=== PATIENT | male | born 1975 | race Caucasian/White ===

== ENCOUNTER 2018-09-21 17:38 | Observation (INO) | payer MEDICAID, OTHER ==
[2018-09-21] MEDS ORDERED: Sodium Chloride 0.9% 1,000 ML IV STA (17:59)
[2018-09-21] MEDS ORDERED: Multivitamin (MVI) 10 ML, Thiamine 100 MG, Folic Acid 1 MG in Sodium Chloride 0.9% 1,00... IV ONE (17:59)
[2018-09-21 18:10] LABS: VENOUS BLOOD GAS BASE EXCESS 6.1 mmol/L (0.0-2.0); VENOUS BLOOD GAS PCO2 49 mmHg (40-60); VENOUS BLOOD GAS PO2 33 mm/Hg (30-55); VENOUS BLOOD PH 7.42 (7.32-7.43)
[2018-09-21 18:20] LABS: BASO % 0.8 % (0.0-2.0); HEMOGLOBIN 9.8 g/dL (12.0-18.0); MEAN CELL VOLUME 93.4 fl (80.0-94.0); MEAN CORPUSCULAR HGB CONC 33.1 g/dL (33.0-37.0); MEAN PLATELET VOLUME 7.7 fl (7.2-11.7); MONO # 0.5 K/uL (0.0-0.8); MONO % 10.2 % (0.0-10.0); NEUT # 3.6 K/uL (1.8-7.0); NRBC % 0.2 % (0.0-0.0); RBC 3.15 Mil/uL (4.40-5.90); RED CELL DISTRIBUTION WIDTH 20.7 % (11.5-14.5); WHITE BLOOD COUNT 5.2 K/uL (4.8-10.8)
[2018-09-21 18:39] LABS: PROTHROMBIN TIME 10.8 Seconds (9.8-13.1)
[2018-09-21 18:41] LABS: PARTIAL THROMBOPLASTIN TIME 27.8 Seconds (25.6-37.1)
[2018-09-21 18:45] LABS: ALB/GLOB RATIO 1.3 (1.0-2.1); ALBUMIN 3.9 g/dL (3.5-5.0); ALT/SGPT 113 U/L (21-72); AST/SGOT 79 U/L (17-59); BLOOD UREA NITROGEN 11 mg/dl (9-20); CALCIUM 8.8 mg/dL (8.4-10.2); GFR NON-AFRICAN AMERICAN > 60
[2018-09-21] MEDS ORDERED: Insulin Regular 100 units/ml IVP STA (18:48)
[2018-09-21] MEDS ORDERED: Insulin Regular 100 units/ml SC STA (18:48)
[2018-09-21] MEDS ORDERED: Insulin Regular 100 units/ml ONE (18:54)
[2018-09-21 19:33] LABS: ACETAMINOPHEN < 10.0 ug/ml (10.0-30.0); SALICYLATE < 1.0 mg/dl
[2018-09-21 20:29] LABS: URINE BILIRUBIN NEGATIVE (NEGATIVE); URINE BLOOD NEGATIVE (NEGATIVE); URINE CLARITY CLEAR (Clear); URINE COLOR STRAW (YELLOW); URINE GLUCOSE (UA) >=500 mg/dL (Normal); URINE LEUKOCYTE ESTERASE NEG Leu/uL (Negative); URINE PROTEIN NEGATIVE (NEGATIVE); URINE UROBILINOGEN 0.2-1.0 mg/dL (0.2-1.0)
[2018-09-21 20:37] LABS: BARBITURATES, UR NEGATIVE (NEGATIVE); BENZODIAZEPINES, UR NEGATIVE (NEGATIVE); OPIATES, UR NEGATIVE (NEGATIVE); PHENCYCLIDINE, UR NEGATIVE (NEGATIVE)
--- NOTE | 2018-09-21 21:06 | ED PDOC ---
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 Additional Complaint(s): 43 year old male presents to the ED via EMS. Unable to obtain history secondary to intoxication. According to EMS, they were called to scene for a passed out patient. Friend at scene reported patient has a history of alcoholism and drinks daily and had been drinking with him. While they were doing so, patient suddenly passed out. No seizure activity reports and no further history provided. Past Medical History Reviewed: Nursing Documentation, Vital Signs, Unable To Obtain Vital Signs: Last Vital Signs Temp 97 F L 09/21/18 19:31 Pulse 103 H 09/21/18 20:13 Resp 19 09/21/18 20:13 BP 108/71 09/21/18 20:13 Pulse Ox 98 09/21/18 20:13 - Family History Family History: States: Unknown Family Hx - Home Medications Home Medications: Ambulatory Orders Medication Instructions Recorded Unobtainable 09/21/18 - Allergies Allergies/Adverse Reactions: Allergies Allergy/AdvReac Type Severity Reaction Status Date / Time Unobtainable Allergy Verified 09/21/18 17:47 Review of Systems Review Of Systems: ROS cannot be obtained secondary to pt's inabilty to answer questions. Physical Exam - Reviewed Nursing Documentation Reviewed: Yes Vital Signs Reviewed: Yes - Physical Exam Eye Exam: Positive for: Conjunctival injection ENT: Positive for: Other (dry mucous membranes) Cardiovascular/Chest: Positive for: Tachycardia Neurologic/Psych: Negative for: Oriented, Motor/Sensory Deficits Comments: Obtunded, arousable to voice but nonverbal - Laboratory Results Result Diagrams: 09/21/18 17:59 09/21/18 17:59 - ECG O2 Sat by Pulse Oximetry: 98 (RA) Pulse Ox Interpretation: Normal - Critical Care Total Time (In Min): 30 Medical Decision Making Medical Decision Making: Time: 1753 Initial Impression: Alcohol intoxication Initial Plan: --Type and screen --VBG --CT cervical spine w/o contrast --CT head w/o contrast --EKG --Alcohol serum --CMP --Magnesium --Osmolality --Phosphorous --Troponin --CBC with differentials --PTT --Prothrombin time --Chest x-ray --NS --Insulin --Blood culture --Urine culture --Glucose --UA --Patient also found to be severally hypoglycemic with unknown history of diabetes. Time: 1899 --Patients alcohol levels is only 17. On further examination patient found to have bottle of rubbing alcohol with his belongings. 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 Also advised that isopropyl alcohol can raise blood sugar and cause elevated lactic acid. Discussed with Dr. Greogrio for hospitalization. --Patients glucose levels improving after fluids and insulin. Time: 1926 CT Head w/o contrast: FINDINGS: BRAIN No acute intraparenchymal hemorrhage. No mass lesion. No CT evidence for acute territorial infarct. No midline shift or extra-axial collections. VENTRICLES: No hydrocephalus. ORBITS: The orbits are unremarkable. SINUSES AND MASTOIDS: The paranasal sinuses and mastoid air cells are clear. BONES: No fracture. SOFT TISSUES: Unremarkable. IMPRESSION: No acute intracranial abnormality. Time: 1929 CT cervical spine w/o contrast: FINDINGS: ALIGNMENT Bony alignment is anatomic. DEGENERATIVE CHANGES No significant canal stenosis or neural foraminal narrowing evident. SOFT TISSUES The prevertebral soft tissues are within normal limits. BONES No acute fracture or aggressive appearing osseous lesion. IMPRESSION: No acute cervical spine abnormality. Scribe Attestation: Documented by Mary Manrique, acting as a scribe for Tammy Milian MD Provider Scribe Attestation: All medical record entries made by the Scribe were at my direction and pe rsonally dictated by me. I have reviewed the chart and agree that the record accurately reflects my personal performance of the history, physical exam, medical decision making, and the department course for this patient. I have also personally directed, reviewed, and agree with the discharge instructions and disposition. Disposition - Disposition Forms: [employer] (Lao)
--- NOTE | 2018-09-21 22:44 | CARD ---
APPROVED REPORT Date of service: 09/21/2018 EKG Measurement Heart [id number] <Conclusion> Sinus tachycardia Nonspecific ST changes Borderline ECG
[2018-09-21] MEDS ORDERED: Glucagon Recombinant 1 mg Inj IM PRN (23:12)
[2018-09-21] MEDS ORDERED: Dextrose 50% SYRINGE Inj (50 ml) IV PRN (23:12)
--- NOTE | 2018-09-21 23:16 | CP.PCM.HP ---
<Therese Schreiber - Last Filed: 09/22/18 02:03> History of Present Illness - History of Present Illness History of Present Illness: 43 yo male with hx diabetes mellitus and alcohol abuse, admitted for acute intoxication, suspected isopropyl alcohol ingestion. Pt was brought to ED by EMS, as per ED, EMS, were called to scene for a passed out patient and a friend at the scene reported patient has a history of alcoholism and drinks daily, they were drinking and pt passed out. No seizure activity reported. Initially pt was not able to give history on presentation to ED, when examined later on, pt was able to state that he has med hx diabetes and takes insulin (cannot provide dose or formulation, does not know pharmacy name), and that he does not remember what happened prior to ED. Reported that he felt nauseated but has not vomited. Pt is limited historian, unable to give full history and is not oriented to time or place. At this time, pt states he has no family in the [place] and cannot provide a person to contact. Initial alcohol level in ED 17; rubbing alcohol was found in pt's belonging, and poison control was called. 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 Also advised that isopropyl alcohol can raise blood sugar and cause elevated lactic acid 3.8. He was also found to be hyperglycemic at 543, and with elevated liver enzymes ALT 79/AST 113, lactic acid . Head CT and cervical spine CT showed no acute abnormalities. Med hx: IDDM Surg hx: denies Social hx: admits to drinking vodka daily (quantifies as one drink), denies tobacco use or other drug use Allergies: denies Medications: insulin (dose and formulation unknown) Present on Admission - Present on Admission Any Indicators Present on Admission: Yes History of Uncontrolled Diabetes: Yes Review of Systems - Constitutional Constitutional: absent: Fever, Night Sweats - Cardiovascular Cardiovascular: absent: Chest Pain - Respiratory Respiratory: absent: Cough - Gastrointestinal Gastrointestinal: Nausea - Neurological Neurological: Syncope Past Patient History - Past Medical History & Family History Past Medical History?: Yes - Past Social History Smoking Status: Unknown If Ever Smoked Alcohol: Other (daily, pt states 1x per day) - CARDIAC Hx Cardiac Disorders: No - PULMONARY Hx Respiratory Disorders: No - NEUROLOGICAL Hx Neurological Disorder: No - HEENT Hx HEENT Problems: No - RENAL Hx Chronic Kidney Disease: No - ENDOCRINE/METABOLIC Hx Endocrine Disorders: Yes Hx Diabetes Mellitus Type 2: Yes - HEMATOLOGICAL/ONCOLOGICAL Hx Blood Disorders: No - INTEGUMENTARY Hx Dermatological Problems: No - MUSCULOSKELETAL/RHEUMATOLOGICAL Hx Musculoskeletal Disorders: No - GASTROINTESTINAL Hx Gastrointestinal Disorders: No - GENITOURINARY/GYNECOLOGICAL Hx Genitourinary Disorders: No - PSYCHIATRIC Hx Psychophysiologic Disorder: No Hx Substance Use: Yes (alcohol) - SURGICAL HISTORY Hx Surgeries: No - ANESTHESIA Hx Anesthesia: No Meds Allergies/Adverse Reactions: Allergies Allergy/AdvReac Type Severity Reaction Status Date / Time Unobtainable Allergy Verified 09/21/18 17:47 Physical Exam - Constitutional Appears: Confused - Head Exam Head Exam: NORMAL INSPECTION - Eye Exam Eye Exam: Normal appearance - ENT Exam ENT Exam: Mucous Membranes Dry - Neck Exam Neck exam: Positive for: Normal Inspection - Respiratory Exam Respiratory Exam: Clear to Auscultation Bilateral, NORMAL BREATHING PATTERN. absent: Wheezes - Cardiovascular Exam Cardiovascular Exam: Tachycardia, +S1, +S2 - GI/Abdominal Exam GI & Abdominal Exam: Normal Bowel Sounds, Soft - Extremities Exam Extremities exam: Positive for: normal capillary refill, normal inspection. Negative for: calf tenderness - Back Exam Back exam: NORMAL INSPECTION - Neurological Exam Neurological exam: Alert Additional comments: AAOx1; not oriented to time and place. Mild asterixis, mild tongue fasciculation. - Psychiatric Exam Additional comments: nervous - Skin Skin Exam: Dry, Normal Color, Warm Results - Vital Signs Recent Vital Signs: Last Vital Signs Temp 98.0 F 09/21/18 22:56 Pulse 94 H 09/21/18 22:56 Resp 20 09/21/18 22:56 BP 115/75 09/21/18 22:56 Pulse Ox 100 09/21/18 22:56 - Labs Result Diagrams: 09/21/18 17:59 09/21/18 17:59 Labs: Laboratory Results - last 24 hr 09/21/18 09/21/18 09/21/18 17:59 17:59 17:59 WBC RBC Hgb Hct MCV MCH MCHC RDW Plt Count MPV Neut % (Auto) Lymph % (Auto) Haakon % (Auto) Eos % (Auto) Baso % (Auto) Neut # (Auto) Lymph # (Auto) Haakon # (Auto) Eos # (Auto) Baso # (Auto) PT INR APTT pO2 VBG pH VBG pCO2 VBG HCO3 VBG Total CO2 VBG O2 Sat (Calc) VBG Base Excess VBG Potassium Glucose Lactate FiO2 Blood Gas Comments Crit Value Called To Crit Value Called By Crit Value Read Back Blood Gas Notified Time Sodium 139 Potassium 4.0 Chloride 100 Carbon Dioxide 27 Anion Gap 16 BUN 11 Creatinine 0.8 Est GFR ( Amer) > 60 Est GFR (Non-Af Amer) > 60 Random Glucose 543 H* Serum Osmolality 375 H Calcium 8.8 Phosphorus 4.1 Magnesium 2.0 Total Bilirubin 0.4 AST 79 H ALT 113 H Alkaline Phosphatase 75 Troponin I < 0.0120 Total Protein 6.9 Albumin 3.9 Globulin 3.0 Albumin/Globulin Ratio 1.3 Venous Blood Potassium Urine Color Urine Clarity Urine pH Ur Specific Diller Urine Protein Urine Glucose (UA) Urine Ketones Urine Blood Urine Nitrate Urine Bilirubin Urine Urobilinogen Ur Leukocyte Esterase Urine RBC (Auto) Urine Microscopic WBC Salicylates Urine Opiates Screen Urine Methadone Screen Acetaminophen Ur Barbiturates Screen Ur Phencyclidine Scrn Ur Amphetamines Screen U Benzodiazepines Scrn U Oth Cocaine Metabols U Cannabinoids Screen Alcohol, Quantitative 17 H Blood Type A POSITIVE Antibody Screen Negative BBK History Checked No verified bt 09/21/18 09/21/18 09/21/18 17:59 17:59 18:01 WBC 5.2 RBC 3.15 L Hgb 9.8 L Hct 29.5 L MCV 93.4 MCH 31.0 MCHC 33.1 RDW 20.7 H Plt Count 275 MPV 7.7 Neut % (Auto) 69.0 Lymph % (Auto) 20.0 Haakon % (Auto) 10.2 H Eos % (Auto) 0.0 Baso % (Auto) 0.8 Neut # (Auto) 3.6 Lymph # (Auto) 1.0 Haakon # (Auto) 0.5 Eos # (Auto) 0.0 Baso # (Auto) 0.0 PT 10.8 INR 1.0 APTT 27.8 pO2 33 VBG pH 7.42 VBG pCO2 49 VBG HCO3 28.8 VBG Total CO2 33.3 H VBG O2 Sat (Calc) 63.7 VBG Base Excess 6.1 H VBG Potassium 4.1 Glucose 477 H* Lactate 3.8 H FiO2 21.0 Blood Gas Comments Lac=3.8 Crit Value Called To issac Quezada Crit Value Called By 22 Crit Value Read Back Y Blood Gas Notified Time 181 Sodium 141.0 Potassium Chloride 100.0 Carbon Dioxide Anion Gap BUN Creatinine Est GFR ( Amer) Est GFR (Non-Af Amer) Random Glucose Serum Osmolality Calcium Phosphorus Magnesium Total Bilirubin AST ALT Alkaline Phosphatase Troponin I Total Protein Albumin Globulin Albumin/Globulin Ratio Venous Blood Potassium 4.1 Urine Color Urine Clarity Urine pH Ur Specific Diller Urine Protein Urine Glucose (UA) Urine Ketones Urine Blood Urine Nitrate Urine Bilirubin Urine Urobilinogen Ur Leukocyte Esterase Urine RBC (Auto) Urine Microscopic WBC Salicylates Urine Opiates Screen Urine Methadone Screen Acetaminophen Ur Barbiturates Screen Ur Phencyclidine Scrn Ur Amphetamines Screen U Benzodiazepines Scrn U Oth Cocaine Metabols U Cannabinoids Screen Alcohol, Quantitative Blood Type Antibody Screen BBK History Checked 09/21/18 09/21/18 09/21/18 19:24 20:08 20:08 WBC RBC Hgb Hct MCV MCH MCHC RDW Plt Count MPV Neut % (Auto) Lymph % (Auto) Haakon % (Auto) Eos % (Auto) Baso % (Auto) Neut # (Auto) Lymph # (Auto) Haakon # (Auto) Eos # (Auto) Baso # (Auto) PT INR APTT pO2 VBG pH VBG pCO2 VBG HCO3 VBG Total CO2 VBG O2 Sat (Calc) VBG Base Excess VBG Potassium Glucose Lactate FiO2 Blood Gas Comments Crit Value Called To Crit Value Called By Crit Value Read Back Blood Gas Notified Time Sodium Potassium Chloride Carbon Dioxide Anion Gap BUN Creatinine Est GFR ( Amer) Est GFR (Non-Af Amer) Random Glucose Serum Osmolality Calcium Phosphorus Magnesium Total Bilirubin AST ALT Alkaline Phosphatase Troponin I Total Protein Albumin Globulin Albumin/Globulin Ratio Venous Blood Potassium Urine Color Straw Urine Clarity Clear Urine pH 6.0 Ur Specific Diller 1.023 Urine Protein Negative Urine Glucose (UA) >=500 Urine Ketones 20 Urine Blood Negative Urine Nitrate Negative Urine Bilirubin Negative Urine Urobilinogen 0.2-1.0 Ur Leukocyte Esterase Neg Urine RBC (Auto) < 1 Urine Microscopic WBC < 1 Salicylates < 1.0 Urine Opiates Screen Negative Urine Methadone Screen Negative Acetaminophen < 10.0 L Ur Barbiturates Screen Negative Ur Phencyclidine Scrn Negative Ur Amphetamines Screen Negative U Benzodiazepines Scrn Negative U Oth Cocaine Metabols Negative U Cannabinoids Screen Negative Alcohol, Quantitative Blood Type Antibody Screen BBK History Checked Assessment & Plan - Assessment and Plan (Free Text) Assessment: 43 yo M with hx insulin dependent diabetes mellitus and alcohol abuse, admitted for altered mental status, acute intoxication with suspected isopropyl alcohol ingestion, and hyperglycemia. Plan: # Altered Mental Status, likely secondary to acute intoxication - Banana bag started in ED - Hydration with NS @ 100 ml/hr - Isopropyl level pending - CIWA protocol; ativan Q4 for symptoms of withdrawal - Thiamine, folic acid daily - Zofran for nausea PRN - NPO # Insulin-Dependent Diabetes Mellitus - hyperglycemic at 543; given fluids and insulin in ED with response - continue fluid hydration - HbA1c, follow CMP in am - Insulin Coverage Scale and Hypoglycemia Protocol # DVT prophylaxis - Lovenox <Kali Gregorio - Last Filed: 09/22/18 03:04> Results - Vital Signs Recent Vital Signs: Last Vital Signs Temp 98.0 F 09/21/18 23:46 Pulse 90 09/21/18 23:46 Resp 18 09/21/18 23:46 BP 110/71 09/21/18 23:46 Pulse Ox 99 09/21/18 23:46 - Labs Result Diagrams: 09/21/18 17:59 09/21/18 17:59 Labs: Laboratory Results - last 24 hr 09/21/18 09/21/18 09/21/18 17:59 17:59 17:59 WBC RBC Hgb Hct MCV MCH MCHC RDW Plt Count MPV Neut % (Auto) Lymph % (Auto) Haakon % (Auto) Eos % (Auto) Baso % (Auto) Neut # (Auto) Lymph # (Auto) Haakon # (Auto) Eos # (Auto) Baso # (Auto) PT INR APTT pO2 VBG pH VBG pCO2 VBG HCO3 VBG Total CO2 VBG O2 Sat (Calc) VBG Base Excess VBG Potassium Glucose Lactate FiO2 Blood Gas Comments Crit Value Called To Crit Value Called By Crit Value Read Back Blood Gas Notified Time Sodium 139 Potassium 4.0 Chloride 100 Carbon Dioxide 27 Anion Gap 16 BUN 11 Creatinine 0.8 Est GFR ( Amer) > 60 Est GFR (Non-Af Amer) > 60 Random Glucose 543 H* Serum Osmolality 375 H Calcium 8.8 Phosphorus 4.1 Magnesium 2.0 Total Bilirubin 0.4 AST 79 H ALT 113 H Alkaline Phosphatase 75 Troponin I < 0.0120 Total Protein 6.9 Albumin 3.9 Globulin 3.0 Albumin/Globulin Ratio 1.3 Venous Blood Potassium Urine Color Urine Clarity Urine pH Ur Specific Diller Urine Protein Urine Glucose (UA) Urine Ketones Urine Blood Urine Nitrate Urine Bilirubin Urine Urobilinogen Ur Leukocyte Esterase Urine RBC (Auto) Urine Microscopic WBC Salicylates Urine Opiates Screen Urine Methadone Screen Acetaminophen Ur Barbiturates Screen Ur Phencyclidine Scrn Ur Amphetamines Screen U Benzodiazepines Scrn U Oth Cocaine Metabols U Cannabinoids Screen Alcohol, Quantitative 17 H Blood Type A POSITIVE Antibody Screen Negative BBK History Checked No verified bt 09/21/18 09/21/18 09/21/18 17:59 17:59 18:01 WBC 5.2 RBC 3.15 L Hgb 9.8 L Hct 29.5 L MCV 93.4 MCH 31.0 MCHC 33.1 RDW 20.7 H Plt Count 275 MPV 7.7 Neut % (Auto) 69.0 Lymph % (Auto) 20.0 Haakon % (Auto) 10.2 H Eos % (Auto) 0.0 Baso % (Auto) 0.8 Neut # (Auto) 3.6 Lymph # (Auto) 1.0 Haakon # (Auto) 0.5 Eos # (Auto) 0.0 Baso # (Auto) 0.0 PT 10.8 INR 1.0 APTT 27.8 pO2 33 VBG pH 7.42 VBG pCO2 49 VBG HCO3 28.8 VBG Total CO2 33.3 H VBG O2 Sat (Calc) 63.7 VBG Base Excess 6.1 H VBG Potassium 4.1 Glucose 477 H* Lactate 3.8 H FiO2 21.0 Blood Gas Comments Lac=3.8 Crit Value Called To issac Quezada Crit Value Called By 22 Crit Value Read Back Y Blood Gas Notified Time 181 Sodium 141.0 Potassium Chloride 100.0 Carbon Dioxide Anion Gap BUN Creatinine Est GFR ( Amer) Est GFR (Non-Af Amer) Random Glucose Serum Osmolality Calcium Phosphorus Magnesium Total Bilirubin AST ALT Alkaline Phosphatase Troponin I Total Protein Albumin Globulin Albumin/Globulin Ratio Venous Blood Potassium 4.1 Urine Color Urine Clarity Urine pH Ur Specific Diller Urine Protein Urine Glucose (UA) Urine Ketones Urine Blood Urine Nitrate Urine Bilirubin Urine Urobilinogen Ur Leukocyte Esterase Urine RBC (Auto) Urine Microscopic WBC Salicylates Urine Opiates Screen Urine Methadone Screen Acetaminophen Ur Barbiturates Screen Ur Phencyclidine Scrn Ur Amphetamines Screen U Benzodiazepines Scrn U Oth Cocaine Metabols U Cannabinoids Screen Alcohol, Quantitative Blood Type Antibody Screen BBK History Checked 09/21/18 09/21/18 09/21/18 19:24 20:08 20:08 WBC RBC Hgb Hct MCV MCH MCHC RDW Plt Count MPV Neut % (Auto) Lymph % (Auto) Haakon % (Auto) Eos % (Auto) Baso % (Auto) Neut # (Auto) Lymph # (Auto) Haakon # (Auto) Eos # (Auto) Baso # (Auto) PT INR APTT pO2 VBG pH VBG pCO2 VBG HCO3 VBG Total CO2 VBG O2 Sat (Calc) VBG Base Excess VBG Potassium Glucose Lactate FiO2 Blood Gas Comments Crit Value Called To Crit Value Called By Crit Value Read Back Blood Gas Notified Time Sodium Potassium Chloride Carbon Dioxide Anion Gap BUN Creatinine Est GFR ( Amer) Est GFR (Non-Af Amer) Random Glucose Serum Osmolality Calcium Phosphorus Magnesium Total Bilirubin AST ALT Alkaline Phosphatase Troponin I Total Protein Albumin Globulin Albumin/Globulin Ratio Venous Blood Potassium Urine Color Straw Urine Clarity Clear Urine pH 6.0 Ur Specific Diller 1.023 Urine Protein Negative Urine Glucose (UA) >=500 Urine Ketones 20 Urine Blood Negative Urine Nitrate Negative Urine Bilirubin Negative Urine Urobilinogen 0.2-1.0 Ur Leukocyte Esterase Neg Urine RBC (Auto) < 1 Urine Microscopic WBC < 1 Salicylates < 1.0 Urine Opiates Screen Negative Urine Methadone Screen Negative Acetaminophen < 10.0 L Ur Barbiturates Screen Negative Ur Phencyclidine Scrn Negative Ur Amphetamines Screen Negative U Benzodiazepines Scrn Negative U Oth Cocaine Metabols Negative U Cannabinoids Screen Negative Alcohol, Quantitative Blood Type Antibody Screen BBK History Checked Attending/Attestation - Attestation I have personally seen and examined this patient.: Yes I have fully participated in the care of the patient.: Yes I have reviewed all pertinent clinical information: Yes Notes (Text): 09/22/18 02:53 I saw, examined and discussed this patient with the Resident. I agree with the Assessment and plan. This is a 43 years old male with daily use of alcohol and hx of DM, who was brought into the ED with change in mental status. He apparently was drinking Alcohol and passed out. In the ED he was lethargic, appearing intoxicated and with mild confusion. An empty bottle of Isopropyl Alcohol was found in his possession. alcohol level was 17 and Blood Glucose was 543mg/dl.A&P #. Isopropyl Intoxication, treated as stated above #. Hyperglycemia in DM II Insulin requiring. Levemir daily, Lispro sliding scale and HbA1c #. Anemia. Follow Folate, B12 and Iron panel Kali Gregorio MD 09/22/18 03:04
[2018-09-22 05:51] LABS: HEMOGLOBIN 8.7 g/dL (12.0-18.0); MEAN CELL VOLUME 92.8 fl (80.0-94.0); MEAN CORPUSCULAR HGB CONC 33.4 g/dL (33.0-37.0); RBC 2.82 Mil/uL (4.40-5.90); RED CELL DISTRIBUTION WIDTH 20.7 % (11.5-14.5); WHITE BLOOD COUNT 3.6 K/uL (4.8-10.8)
[2018-09-22 06:11] LABS: ALB/GLOB RATIO 1.2 (1.0-2.1); ALBUMIN 3.3 g/dL (3.5-5.0); ALT/SGPT 100 U/L (21-72); AST/SGOT 59 U/L (17-59); BLOOD UREA NITROGEN 7 mg/dl (9-20); CALCIUM 7.8 mg/dL (8.4-10.2); GFR NON-AFRICAN AMERICAN > 60
[2018-09-22 06:16] LABS: % IRON SATURATION 5 % (20-55); IRON < 10 ug/dL (49-181); TOTAL IRON BINDING CAPACITY 271 ug/dL (250-450)
[2018-09-22] MEDS: Sodium Chloride 0.9% 1,000 ML IV SCH ×3 (06:50→18:44)
--- NOTE | 2018-09-22 08:07 | RAD ---
Date of service: 09/21/2018 HISTORY: ams COMPARISON: No prior. FINDINGS: LUNGS: No active pulmonary disease. PLEURA: No significant pleural effusion identified, no pneumothorax apparent. CARDIOVASCULAR: No atherosclerotic calcification present Normal. OSSEOUS STRUCTURES: No significant abnormalities. VISUALIZED UPPER ABDOMEN: Normal. OTHER FINDINGS: None. IMPRESSION: No acute cardiopulmonary disease appreciated.
[2018-09-22] MEDS: Insulin Lispro (humaLOG) 100 Units/ml Inj SC SCH ×4 (08:46→21:44)
[2018-09-22] MEDS: Insulin Detemir 100 Units/ml Inj SC SCH (08:47)
[2018-09-22] MEDS: Multivitamin With Minerals Tab PO SCH (08:47)
[2018-09-22] MEDS ORDERED: Potassium Chloride 20 mEq ER Tab PO ONE ×3 (09:31→14:00)
--- NOTE | 2018-09-22 10:15 | CT ---
Date of service: 09/21/2018 PROCEDURE: CT HEAD WITHOUT CONTRAST. HISTORY: head injury COMPARISON: None available. TECHNIQUE: Axial computed tomography images were obtained through the head/brain without intravenous contrast. Radiation dose: Total exam DLP = 899.13 mGy-cm. This CT exam was performed using one or more of the following dose reduction techniques: Automated exposure control, adjustment of the mA and/or kV according to patient size, and/or use of iterative reconstruction technique. FINDINGS: HEMORRHAGE: No intracranial hemorrhage. BRAIN: Normal caballero-white matter differentiation and density are appreciated throughout the cerebrum and cerebellum with the brainstem appearing unremarkable as well. There is no mass effect. There is no suspicious extra-axial fluid collection and the midline brain anatomy appears diffusely unremarkable. VENTRICLES: Unremarkable. No hydrocephalus. CALVARIUM: No destructive bony lesion or displaced fracture identified including through the skullbase. PARANASAL SINUSES: Unremarkable as visualized. No significant inflammatory changes. MASTOID AIR CELLS: Unremarkable as visualized. No inflammatory changes. OTHER FINDINGS: None. IMPRESSION: Unremarkable CT of the Head. Concordant preliminary report from [facility], 09/21/2018.
--- NOTE | 2018-09-22 10:17 | CP.PCM.PN ---
<KeatonKristyn - Last Filed: 09/22/18 13:05> Subjective - Date & Time of Evaluation Date of Evaluation: 09/22/18 Time of Evaluation: 09:00 - Subjective Subjective: No acute overnight events. Pt arousable, alert, awake and oriented to time and day. Denies tremors, anxiety, agitation, diaphoresis, chest pain, SOB, nausea, vomiting, diarrhea or constipation. Wants to eat breakfast. Objective - Vital Signs/Intake and Output Vital Signs (last 24 hours): Temp Pulse Resp BP Pulse Ox 97.8 F 106 H 20 117/65 98 09/22/18 08:00 09/22/18 08:00 09/22/18 08:00 09/22/18 08:00 09/22/18 08:00 - Medications Medications: Current Medications Dextrose (Dextrose 50% Inj) 0 ml IV STAT PRN; Protocol PRN Reason: Hypoglycemia Protocol Dextrose (Glutose 15) 0 gm PO ONCE PRN; Protocol PRN Reason: Hypoglycemia Protocol Enoxaparin Sodium (Lovenox) 40 mg SC DAILY [facility]; Protocol Ferrous Sulfate (Feosol) 325 mg PO BID [facility] Folic Acid (Folic Acid) 1 mg PO DAILY [facility] Last Admin: 09/22/18 08:47 Dose: Not Given Glucagon (Glucagen Diagnostic Kit) 0 mg IM STAT PRN; Protocol PRN Reason: Hypoglycemia Protocol Sodium Chloride (Sodium Chloride 0.9%) 1,000 mls @ 100 mls/hr IV .Q10H [facility] Last Admin: 09/22/18 06:50 Dose: 100 mls/hr Insulin Detemir (Levemir) 10 units SC ACB [facility] Last Admin: 09/22/18 08:47 Dose: Not Given Insulin Human Lispro (Humalog) 0 units SC ACHS [facility]; Protocol Last Admin: 09/22/18 08:46 Dose: Not Given Lorazepam (Ativan) 1 mg IVP Q4H PRN PRN Reason: Symptoms of alcohol withdrawl Multivitamins/Minerals (Therapeutic-M Tab) 1 tab PO DAILY [facility] Last Admin: 09/22/18 08:47 Dose: Not Given Potassium Chloride (K-Dur 20 Meq Er Tab) 40 meq PO ONCE ONE Stop: 09/22/18 14:01 - Labs Labs: 09/22/18 04:20 10/22/18 04:20 PT 10.8 Seconds (9.8-13.1) 09/21/18 17:59 INR 1.0 09/21/18 17:59 APTT 27.8 Seconds (25.6-37.1) 09/21/18 17:59 - Constitutional Appears: Non-toxic, No Acute Distress - Head Exam Head Exam: ATRAUMATIC, NORMAL INSPECTION, NORMOCEPHALIC - Eye Exam Eye Exam: EOMI, Normal appearance - ENT Exam ENT Exam: Mucous Membranes Moist - Respiratory Exam Respiratory Exam: Clear to Ausculation Bilateral, NORMAL BREATHING PATTERN - Cardiovascular Exam Cardiovascular Exam: Tachycardia (106), REGULAR RHYTHM, +S1, +S2 - GI/Abdominal Exam GI & Abdominal Exam: Soft, Normal Bowel Sounds - Extremities Exam Extremities Exam: Normal Inspection - Neurological Exam Neurological Exam: Awake (Alert, Awake and oriented to time and date, No tremors noted) Assessment and Plan - Assessment and Plan (Free Text) Assessment: 43 yo M with hx insulin dependent diabetes mellitus and alcohol abuse, admitted for altered mental status, acute intoxication with suspected isopropyl alcohol ingestion, and hyperglycemia. 1. Altered Mental Status, likely secondary to acute intoxication -Banana bag -Hydration with NS @ 100 ml/hr -Isopropyl level pending -CIWA score 0, CIWA protocol; ativan PRN -Thiamine, folic acid daily -Ca 7.8, corrected Ca level 8.4 -K 3.0, repleated 60meq, CMP in AM -CXR- negative, CT C-spine- negative for fx or spondylosis, 4.3mm non calcified solid nodule found in upper middle lobe, F/u low dose CT in 12 months, Lung Rads 2 -Zofran for nausea PRN -F/u B12, Folate, CMP, Blood Cx, Urine Cx 2. Insulin-Dependent Diabetes Mellitus -[id number] 9.7, POC 199 -Insulin Coverage Scale and Hypoglycemia Protocol -Diabetic diet started -follow CMP in am 3. Fe Deficiency anemia -Fe<10 -Ferrous Sulfate 325mg BID 4. DVT prophylaxis -Lovenox 40mg SC 5.Code Status -Full code <Zoraida Rios - Last Filed: 09/22/18 17:19> Objective - Vital Signs/Intake and Output Vital Signs (last 24 hours): Temp Pulse Resp BP Pulse Ox 98.8 F 115 H 20 112/64 99 09/22/18 16:57 09/22/18 16:57 09/22/18 16:57 09/22/18 16:57 09/22/18 16:57 - Medications Medications: Current Medications Dextrose (Dextrose 50% Inj) 0 ml IV STAT PRN; Protocol PRN Reason: Hypoglycemia Protocol Dextrose (Glutose 15) 0 gm PO ONCE PRN; Protocol PRN Reason: Hypoglycemia Protocol Enoxaparin Sodium (Lovenox) 40 mg SC DAILY [facility]; Protocol Last Admin: 09/22/18 12:13 Dose: 40 mg Ferrous Sulfate (Feosol) 325 mg PO BID [facility] Last Admin: 09/22/18 17:08 Dose: 325 mg Folic Acid (Folic Acid) 1 mg PO DAILY [facility] Last Admin: 09/22/18 08:47 Dose: Not Given Glucagon (Glucagen Diagnostic Kit) 0 mg IM STAT PRN; Protocol PRN Reason: Hypoglycemia Protocol Sodium Chloride (Sodium Chloride 0.9%) 1,000 mls @ 100 mls/hr IV .Q10H [facility] Last Admin: 09/22/18 12:15 Dose: 100 mls/hr Insulin Detemir (Levemir) 10 units SC ACB [facility] Last Admin: 09/22/18 08:47 Dose: Not Given Insulin Human Lispro (Humalog) 0 units SC ACHS [facility]; Protocol Last Admin: 09/22/18 17:08 Dose: 3 units Lorazepam (Ativan) 1 mg IVP Q4H PRN PRN Reason: Symptoms of alcohol withdrawl Multivitamins/Minerals (Therapeutic-M Tab) 1 tab PO DAILY [facility] Last Admin: 09/22/18 08:47 Dose: Not Given - Labs Labs: 09/22/18 04:20 09/22/18 04:20 PT 10.8 Seconds (9.8-13.1) 09/21/18 17:59 INR 1.0 09/21/18 17:59 APTT 27.8 Seconds (25.6-37.1) 09/21/18 17:59 Attending/Attestation - Attestation I have personally seen and examined this patient.: Yes I have fully participated in the care of the patient.: Yes I have reviewed all pertinent clinical information, including history, physical exam and plan: Yes
--- NOTE | 2018-09-22 10:21 | CT ---
Date of service: 09/21/2018 PROCEDURE: CT Cervical Spine without contrast HISTORY: fall head injury alcohol intox COMPARISON: None available. TECHNIQUE: Axial computed tomography images were obtained of the cervical spine without the use of intravenous contrast. Coronal and sagittal reformatted images were created and reviewed. Radiation dose: Total exam DLP = 359.34 mGy-cm. This CT exam was performed using one or more of the following dose reduction techniques: Automated exposure control, adjustment of the mA and/or kV according to patient size, and/or use of iterative reconstruction technique. FINDINGS: VERTEBRAE: No fracture. Normal alignment. No destructive bony lesion. DISCS/SPINAL CANAL/NEURAL FORAMINA: No significant central canal or neural foraminal stenosis. Discs heights are grossly preserved. PARASPINAL SOFT TISSUES: Unremarkable. OTHER FINDINGS: None. IMPRESSION: No fracture or spondylolisthesis identified throughout the cervical spine. No significant bony central canal or neural foraminal stenosis bilaterally. Incidental 4.3 mm noncalcified solid nodule right upper lobe posteriorly. Follow-up low-dose chest CT recommended in 12 months unless clinically indicated earlier. Lung Rads 2. PA review assigned.
[2018-09-22] MEDS: Enoxaparin 40 mg Syringe SC SCH (12:13)
[2018-09-22 12:56] LABS: FOLATE > 20.0 ng/mL
--- NOTE | 2018-09-22 16:24 | CP.PCM.DIS ---
Addendum entered and electronically signed by Kristyn Pugh MD 09/23/18 11:04: Pt was not discharged yesterday due to being unsteady with walking. Today pt complained of mid sternal non radiating chest pain non pleuritic non positional. Pain reproducible on palpation, no acute overnight telemetry changes, sinus tachy 140's. Pt was able to walk to bathroom had BM, no nausea, vomiting. Physical therapy saw and cleared pt for D/C. Original Note: <Kristyn Pugh - Last Filed: 09/22/18 17:26> Provider - Provider Date of Admission: 09/21/18 20:52 Attending physician: Kali Gregorio Primary care physician: Dr. Christie Robbins Time Spent in preparation of Discharge (in minutes): 20 Diagnosis - Discharge Diagnosis (1) Altered mental status Status: Acute Comment: - F/u outpt with PMD 1 week- Dr. Christie Robbins. -Gave pt list of alcohol treatement centers (2) Alcohol intoxication Status: Acute Comment: -Gave pt list of alcohol treatement centers. -Discussed with pt the neccessity to seek help for alcohol abuse, pt states he agrees with plan to seek senior living treatment (3) Insulin dependent diabetes mellitus Status: Acute Comment: -Sending home on diabetes meds (4) Iron deficiency anemia Status: Acute Comment: - Gave pt Fe to go home with Hospital Course - Lab Results Lab Results: Most Recent Lab Values WBC 3.6 K/uL (4.8-10.8) L 09/22/18 04:20 RBC 2.82 Mil/uL (4.40-5.90) L 09/22/18 04:20 Hgb 8.7 g/dL (12.0-18.0) L 09/22/18 04:20 Hct 26.1 % (35.0-51.0) L 09/22/18 04:20 MCV 92.8 fl (80.0-94.0) 09/22/18 04:20 MCH 31.0 pg (27.0-31.0) 09/22/18 04:20 MCHC 33.4 g/dL (33.0-37.0) 09/22/18 04:20 RDW 20.7 % (11.5-14.5) H 09/22/18 04:20 Plt Count 240 K/uL (130-400) 09/22/18 04:20 MPV 7.7 fl (7.2-11.7) 09/21/18 17:59 Neut % (Auto) 69.0 % (50.0-75.0) 09/21/18 17:59 Lymph % (Auto) 20.0 % (20.0-40.0) 09/21/18 17:59 [place] % (Auto) 10.2 % (0.0-10.0) H 09/21/18 17:59 Eos % (Auto) 0.0 % (0.0-4.0) 09/21/18 17:59 Baso % (Auto) 0.8 % (0.0-2.0) 09/21/18 17:59 Neut # (Auto) 3.6 K/uL (1.8-7.0) 09/21/18 17:59 Lymph # (Auto) 1.0 K/uL (1.0-4.3) 09/21/18 17:59 [place] # (Auto) 0.5 K/uL (0.0-0.8) 09/21/18 17:59 Eos # (Auto) 0.0 K/uL (0.0-0.7) 09/21/18 17:59 Baso # (Auto) 0.0 K/uL (0.0-0.2) 09/21/18 17:59 PT 10.8 Seconds (9.8-13.1) 09/21/18 17:59 INR 1.0 09/21/18 17:59 APTT 27.8 Seconds (25.6-37.1) 09/21/18 17:59 pO2 33 mm/Hg (30-55) 09/21/18 18:01 VBG pH 7.42 (7.32-7.43) 09/21/18 18:01 VBG pCO2 49 mmHg (40-60) 09/21/18 18:01 VBG HCO3 28.8 mmol/L 09/21/18 18:01 VBG Total CO2 33.3 mmol/L (22-28) H 09/21/18 18:01 VBG O2 Sat (Calc) 63.7 % (40-65) 09/21/18 18:01 VBG Base Excess 6.1 mmol/L (0.0-2.0) H 09/21/18 18:01 VBG Potassium 4.1 mmol/L (3.6-5.2) 09/21/18 18:01 Sodium 141.0 mmol/L (132-148) 09/21/18 18:01 Chloride 100.0 mmol/L (98-107) 09/21/18 18: Glucose 477 mg/dL (75-110) H* 09/21/18 18:01 Lactate 3.8 mmol/L (0.7-2.1) H 09/21/18 18:01 FiO2 21.0 % 09/21/18 18:01 Blood Gas Comments Lac=3.8 09/21/18 18:01 Crit Value Called To [email or web address] 09/21/18 18:01 Crit Value Called By 22 09/21/18 18:01 Crit Value Read Back Y 09/21/18 18:01 Blood Gas Notified Time 18109/21/18 18:01 Sodium 139 mmol/l (132-148) 09/22/18 04:20 Potassium 3.0 MMOL/L (3.6-5.0) L 09/22/18 04:20 Chloride 100 mmol/L (98-107) 09/22/18 04:20 Carbon Dioxide 29 mmol/L (22-30) 09/22/18 04:20 Anion Gap 13 (10-20) 09/22/18 04:20 BUN 7 mg/dl (9-20) L 09/22/18 04:20 Creatinine 0.5 mg/dl (0.8-1.5) L 09/22/18 04:20 Est GFR ( Amer) > 60 09/22/18 04:20 Est GFR (Non-Af Amer) > 60 09/22/18 04:20 POC Glucose (mg/dL) 199 mg/dL (65-110) H 09/22/18 11:18 Random Glucose 241 mg/dL (75-110) H 09/22/18 04:20 Hemoglobin A1c 9.7 % (4.2-6.5) H 09/22/18 04:20 Serum Osmolality 375 mosm/kg (272-300) H 09/21/18 17:59 Lactic Acid 0.6 MMOL/L (0.7-2.1) L 09/22/18 04:20 Calcium 7.8 mg/dL (8.4-10.2) L 09/22/18 04:20 Phosphorus 4.1 mg/dl (2.5-4.5) 09/21/18 17:59 Magnesium 2.0 MG/DL (1.6-2.3) 09/21/18 17:59 Iron < 10 ug/dL (49-181) L 09/22/18 04:20 TIBC 271 ug/dL (250-450) 09/22/18 04:20 % Saturation 5 % (20-55) L 09/22/18 04:20 Total Bilirubin 0.3 mg/dl (0.2-1.3) 09/22/18 04:20 AST 59 U/L (17-59) D 09/22/18 04:20 ALT 100 U/L (21-72) H 09/22/18 04:20 Alkaline Phosphatase 60 U/L (38-126) 09/22/18 04:20 Troponin I < 0.0120 ng/mL (0.00-0.120) 09/21/18 17:59 Total Protein 6.0 G/DL (6.3-8.2) L 09/22/18 04:20 Albumin 3.3 g/dL (3.5-5.0) L 09/22/18 04:20 Globulin 2.7 gm/dL (2.2-3.9) 09/22/18 04:20 Albumin/Globulin Ratio 1.2 (1.0-2.1) 09/22/18 04:20 Vitamin B12 707 pg/mL (239-931) 09/22/18 04:20 Folate > 20.0 ng/mL 09/22/18 04:20 Venous Blood Potassium 4.1 mmol/L (3.6-5.2) 09/21/18 18:01 Urine Color Straw (YELLOW) 09/21/18 20:08 Urine Clarity Clear (Clear) 09/21/18 20:08 Urine pH 6.0 (5.0-8.0) 09/21/18 20:08 Ur Specific [place] 1.023 (1.003-1.030) 09/21/18 20:08 Urine Protein Negative mg/dL (NEGATIVE) 09/21/18 20:08 Urine Glucose (UA) >=500 mg/dL (Normal) 09/21/18 20:08 Urine Ketones 20 mg/dL (NEGATIVE) 09/21/18 20:08 Urine Blood Negative (NEGATIVE) 09/21/18 20:08 Urine Nitrate Negative (NEGATIVE) 09/21/18 20:08 Urine Bilirubin Negative (NEGATIVE) 09/21/18 20:08 Urine Urobilinogen 0.2-1.0 mg/dL (0.2-1.0) 09/21/18 20:08 Ur Leukocyte Esterase Neg Teri/uL (Negative) 09/21/18 20:08 Urine RBC (Auto) < 1 /hpf (0-3) 09/21/18 20:08 Urine Microscopic WBC < 1 /hpf (0-5) 09/21/18 20:08 Salicylates < 1.0 mg/dl 09/21/18 19:24 Urine Opiates Screen Negative (NEGATIVE) 09/21/18 20:08 Urine Methadone Screen Negative (NEGATIVE) 09/21/18 20:08 Acetaminophen < 10.0 ug/ml (10.0-30.0) L 09/21/18 19:24 Ur Barbiturates Screen Negative (NEGATIVE) 09/21/18 20:08 Ur Phencyclidine Scrn Negative (NEGATIVE) 09/21/18 20:08 Ur Amphetamines Screen Negative (NEGATIVE) 09/21/18 20:08 U Benzodiazepines Scrn Negative (NEGATIVE) 09/21/18 20:08 U Oth Cocaine Metabols Negative (NEGATIVE) 09/21/18 20:08 U Cannabinoids Screen Negative (NEGATIVE) 09/21/18 20:08 Alcohol, Quantitative 17 mg/dl (0-10) H 09/21/18 17:59 Blood Type A POSITIVE 09/21/18 17:59 Antibody Screen Negative 09/21/18 17:59 BBK History Checked No verified bt 09/21/18 17:59 - Hospital Course Hospital Course: Pt is a 43 yo male with hx insulin dependant diabetes mellitus and alcohol abuse, admitted for acute intoxication, suspected isopropyl alcohol ingestion. Pt was brought to ED on 09/21 pt was drinking with a friend and patient passed out. Friend stated he has a history of alcoholism, no seizures reported. In the ED, Initial alcohol level in ED 17; rubbing alcohol was found in pt's belonging, and poison control was called, isopropyl alcohol level ordered. Pt had hyperglycemia 543, elevated lactic acid, elevated LFT's ALT 79/AST 113, Fe deficiency. Head CT and cervical spine CT showed no acute abnormalities. Today pt is hemodynamically stable, HR 93, awake alert and oriented to time date and place, tolerating oral intake, no tremors or DT's, stable for discharge. - Date & Time of H&P Date of H&P: 09/21/18 Time of H&P: 23:16 Discharge Exam - Head Exam Head Exam: ATRAUMATIC, NORMAL INSPECTION, NORMOCEPHALIC - Eye Exam Eye Exam: EOMI, Normal appearance - ENT Exam ENT Exam: Mucous Membranes Moist - Respiratory Exam Respiratory Exam: Clear to PA & Lateral, NORMAL BREATHING PATTERN - Cardiovascular Exam Cardiovascular Exam: RRR, +S1, +S2 - GI/Abdominal Exam GI & Abdominal Exam: Normal Bowel Sounds, Soft - Extremities Exam Extremities exam: normal inspection - Neurological Exam Neurological exam: Alert, Oriented x3 Discharge Plan - Discharge Medications Prescriptions: Ferrous Sulfate [Feosol] 325 mg PO DAILY #30 tab Folic Acid 1 mg PO DAILY #30 tab Insulin Detemir [Levemir] 20 unit SC HS #1 vial Multimineral/Multivitamin [Therapeutic-M Tab] 1 tab PO DAILY #30 tab - Follow Up Plan Condition: GUARDED Disposition: HOME/ ROUTINE Patient education suggested?: Yes Instructions: Alcohol Abuse and Alcoholism (DC), Alcohol Intoxication (DC), Alcohol Use Disorder (DC) Additional Instructions: -Follow up with PMD in 1 week- Dr. Christie Robbins -Gave pt list of alcohol treatment centers -Discussed with pt the necessity to seek help for alcohol abuse, pt states he agrees with plan to seek [facility] treatment Referrals: [facility] [Outside] <Zoraida Rios - Last Filed: 09/22/18 17:32> Provider - Provider Date of Admission: 09/21/18 20:52 Attending physician: Kali Gregorio [facility] Course - Lab Results Lab Results: Most Recent Lab Values WBC 3.6 K/uL (4.8-10.8) L 09/22/18 04:20 RBC 2.82 Mil/uL (4.40-5.90) L 09/22/18 04:20 Hgb 8.7 g/dL (12.0-18.0) L 09/22/18 04:20 Hct 26.1 % (35.0-51.0) L 09/22/18 04:20 MCV 92.8 fl (80.0-94.0) 09/22/18 04:20 MCH 31.0 pg (27.0-31.0) 09/22/18 04:20 MCHC 33.4 g/dL (33.0-37.0) 09/22/18 04:20 RDW 20.7 % (11.5-14.5) H 09/22/18 04:20 Plt Count 240 K/uL (130-400) 09/22/18 04:20 MPV 7.7 fl (7.2-11.7) 09/21/18 17:59 Neut % (Auto) 69.0 % (50.0-75.0) 09/21/18 17:59 Lymph % (Auto) 20.0 % (20.0-40.0) 09/21/18 17:59 [place] % (Auto) 10.2 % (0.0-10.0) H 09/21/18 17:59 Eos % (Auto) 0.0 % (0.0-4.0) 09/21/18 17:59 Baso % (Auto) 0.8 % (0.0-2.0) 09/21/18 17:59 Neut # (Auto) 3.6 K/uL (1.8-7.0) 09/21/18 17:59 Lymph # (Auto) 1.0 K/uL (1.0-4.3) 09/21/18 17:59 [place] # (Auto) 0.5 K/uL (0.0-0.8) 09/21/18 17:59 Eos # (Auto) 0.0 K/uL (0.0-0.7) 09/21/18 17:59 Baso # (Auto) 0.0 K/uL (0.0-0.2) 09/21/18 17:59 PT 10.8 Seconds (9.8-13.1) 09/21/18 17:59 INR 1.0 09/21/18 17:59 APTT 27.8 Seconds (25.6-37.1) 09/21/18 17:59 pO2 33 mm/Hg (30-55) 09/21/18 18:01 VBG pH 7.42 (7.32-7.43) 09/21/18 18:01 VBG pCO2 49 mmHg (40-60) 09/21/18 18:01 VBG HCO3 28.8 mmol/L 09/21/18 18: VBG Total CO2 33.3 mmol/L (22-28) H 09/21/18 18: VBG O2 Sat (Calc) 63.7 % (40-65) 09/21/18 18:01 VBG Base Excess 6.1 mmol/L (0.0-2.0) H 09/21/18 18: VBG Potassium 4.1 mmol/L (3.6-5.2) 09/21/18 18: Sodium 141.0 mmol/L (132-148) 09/21/18 18: Chloride 100.0 mmol/L (98-107) 09/21/18 18: Glucose 477 mg/dL (75-110) H* 09/21/18 18: Lactate 3.8 mmol/L (0.7-2.1) H 09/21/18 18: FiO2 21.0 % 09/21/18 18:01 Blood Gas Comments Lac=3.8 09/21/18 18:01 Crit Value Called To Dr.[email or web address] 09/21/18 18:01 Crit Value Called By 22 09/21/18 18:01 Crit Value Read Back Y 09/21/18 18: Blood Gas Notified Time 1810 09/21/18 18:01 Sodium 139 mmol/l (132-148) 09/22/18 04:20 Potassium 3.0 MMOL/L (3.6-5.0) L 09/22/18 04:20 Chloride 100 mmol/L (98-107) 09/22/18 04:20 Carbon Dioxide 29 mmol/L (22-30) 09/22/18 04:20 Anion Gap 13 (10-20) 09/22/18 04:20 BUN 7 mg/dl (9-20) L 09/22/18 04:20 Creatinine 0.5 mg/dl (0.8-1.5) L 09/22/18 04:20 Est GFR ( Amer) > 60 09/22/18 04:20 Est GFR (Non-Af Amer) > 60 09/22/18 04:20 POC Glucose (mg/dL) 239 mg/dL (65-110) H 09/22/18 16:11 Random Glucose 241 mg/dL (75-110) H 09/22/18 04:20 Hemoglobin A1c 9.7 % (4.2-6.5) H 09/22/18 04:20 Serum Osmolality 375 mosm/kg (272-300) H 09/21/18 17:59 Lactic Acid 0.6 MMOL/L (0.7-2.1) L 09/22/18 04:20 Calcium 7.8 mg/dL (8.4-10.2) L 09/22/18 04:20 Phosphorus 4.1 mg/dl (2.5-4.5) 09/21/18 17:59 Magnesium 2.0 MG/DL (1.6-2.3) 09/21/18 17:59 Iron < 10 ug/dL (49-181) L 09/22/18 04:20 TIBC 271 ug/dL (250-450) 09/22/18 04:20 % Saturation 5 % (20-55) L 09/22/18 04:20 Total Bilirubin 0.3 mg/dl (0.2-1.3) 09/22/18 04:20 AST 59 U/L (17-59) D 09/22/18 04:20 ALT 100 U/L (21-72) H 09/22/18 04:20 Alkaline Phosphatase 60 U/L (38-126) 09/22/18 04:20 Troponin I < 0.0120 ng/mL (0.00-0.120) 09/21/18 17:59 Total Protein 6.0 G/DL (6.3-8.2) L 09/22/18 04:20 Albumin 3.3 g/dL (3.5-5.0) L 09/22/18 04:20 Globulin 2.7 gm/dL (2.2-3.9) 09/22/18 04:20 Albumin/Globulin Ratio 1.2 (1.0-2.1) 09/22/18 04:20 Vitamin B12 707 pg/mL (239-931) 09/22/18 04:20 Folate > 20.0 ng/mL 09/22/18 04:20 Venous Blood Potassium 4.1 mmol/L (3.6-5.2) 09/21/18 18:01 Urine Color Straw (YELLOW) 09/21/18 20:08 Urine Clarity Clear (Clear) 09/21/18 20:08 Urine pH 6.0 (5.0-8.0) 09/21/18 20:08 Ur Specific [place] 1.023 (1.003-1.030) 09/21/18 20:08 Urine Protein Negative mg/dL (NEGATIVE) 09/21/18 20:08 Urine Glucose (UA) >=500 mg/dL (Normal) 09/21/18 20:08 Urine Ketones 20 mg/dL (NEGATIVE) 09/21/18 20:08 Urine Blood Negative (NEGATIVE) 09/21/18 20:08 Urine Nitrate Negative (NEGATIVE) 09/21/18 20:08 Urine Bilirubin Negative (NEGATIVE) 09/21/18 20:08 Urine Urobilinogen 0.2-1.0 mg/dL (0.2-1.0) 09/21/18 20:08 Ur Leukocyte Esterase Neg Teri/uL (Negative) 09/21/18 20:08 Urine RBC (Auto) < 1 /hpf (0-3) 09/21/18 20:08 Urine Microscopic WBC < 1 /hpf (0-5) 09/21/18 20:08 Salicylates < 1.0 mg/dl 09/21/18 19:24 Urine Opiates Screen Negative (NEGATIVE) 09/21/18 20:08 Urine Methadone Screen Negative (NEGATIVE) 09/21/18 20:08 Acetaminophen < 10.0 ug/ml (10.0-30.0) L 09/21/18 19:24 Ur Barbiturates Screen Negative (NEGATIVE) 09/21/18 20:08 Ur Phencyclidine Scrn Negative (NEGATIVE) 09/21/18 20:08 Ur Amphetamines Screen Negative (NEGATIVE) 09/21/18 20:08 U Benzodiazepines Scrn Negative (NEGATIVE) 09/21/18 20:08 U Oth Cocaine Metabols Negative (NEGATIVE) 09/21/18 20:08 U Cannabinoids Screen Negative (NEGATIVE) 09/21/18 20:08 Alcohol, Quantitative 17 mg/dl (0-10) H 09/21/18 17:59 Blood Type A POSITIVE 09/21/18 17:59 Antibody Screen Negative 09/21/18 17:59 BBK History Checked No verified bt 09/21/18 17:59 Attending/Attestation - Attestation I have personally seen and examined this patient.: Yes I have fully participated in the care of the patient.: Yes I have reviewed all pertinent clinical information, including history, physical exam and plan: Yes
[2018-09-23] MEDS: Sodium Chloride 0.9% 1,000 ML IV SCH ×2 (05:00→15:15)
[2018-09-23] MEDS: Insulin Lispro (humaLOG) 100 Units/ml Inj SC SCH ×3 (07:01→17:17)
[2018-09-23] MEDS: Insulin Detemir 100 Units/ml Inj SC SCH (10:40)
[2018-09-23] MEDS: Enoxaparin 40 mg Syringe SC SCH (11:38)
[2018-09-23] MEDS: Multivitamin With Minerals Tab PO SCH (11:38)
[2018-09-23 11:49] LABS: BLOOD UREA NITROGEN 4 mg/dl (9-20); CALCIUM 8.5 mg/dL (8.4-10.2); GFR NON-AFRICAN AMERICAN > 60
[2018-09-23 11:58] VITALS: O2SAT 99
[2018-09-23] MEDS ORDERED: Potassium Chloride 20 mEq ER Tab PO ONE (14:24)
[2018-09-23 15:48] VITALS: BP 107/65; PULSE 108; RESP 20; TEMP 98.7
--- NOTE | 2018-09-23 17:05 | CP.PCM.DIS ---
Provider - Provider Date of Admission: 09/21/18 20:52 Attending physician: Kali Gregorio Time Spent in preparation of Discharge (in minutes): 40 Diagnosis - Discharge Diagnosis (1) Alcohol intoxication Status: Acute (2) Altered mental status Status: Acute (3) Insulin dependent diabetes mellitus Status: Acute (4) Iron deficiency anemia Status: Acute Hospital Course - Lab Results Lab Results: Micro Results 09/21/18 18:04 Blood-Venous Blood Culture - Preliminary NO GROWTH AFTER 24 HOURS 09/21/18 18:04 Blood-Venous Blood Culture - Preliminary NO GROWTH AFTER 24 HOURS Most Recent Lab Values WBC 3.6 K/uL (4.8-10.8) L 09/22/18 04:20 RBC 2.82 Mil/uL (4.40-5.90) L 09/22/18 04:20 Hgb 8.7 g/dL (12.0-18.0) L 09/22/18 04:20 Hct 26.1 % (35.0-51.0) L 09/22/18 04:20 MCV 92.8 fl (80.0-94.0) 09/22/18 04:20 MCH 31.0 pg (27.0-31.0) 09/22/18 04:20 MCHC 33.4 g/dL (33.0-37.0) 09/22/18 04:20 RDW 20.7 % (11.5-14.5) H 09/22/18 04:20 Plt Count 240 K/uL (130-400) 09/22/18 04:20 MPV 7.7 fl (7.2-11.7) 09/21/18 17:59 Neut % (Auto) 69.0 % (50.0-75.0) 09/21/18 17:59 Lymph % (Auto) 20.0 % (20.0-40.0) 09/21/18 17:59 [place] % (Auto) 10.2 % (0.0-10.0) H 09/21/18 17:59 Eos % (Auto) 0.0 % (0.0-4.0) 09/21/18 17:59 Baso % (Auto) 0.8 % (0.0-2.0) 09/21/18 17:59 Neut # (Auto) 3.6 K/uL (1.8-7.0) 09/21/18 17:59 Lymph # (Auto) 1.0 K/uL (1.0-4.3) 09/21/18 17:59 [place] # (Auto) 0.5 K/uL (0.0-0.8) 09/21/18 17:59 Eos # (Auto) 0.0 K/uL (0.0-0.7) 09/21/18:59 Baso # (Auto) 0.0 K/uL (0.0-0.2) 09/21/18 17:59 PT 10.8 Seconds (9.8-13.1) 09/21/18: INR 1.0 09/21/18:59 APTT 27.8 Seconds (25.6-37.1) 09/21/18:59 pO2 33 mm/Hg (30-55) 09/21/18 18:01 VBG pH 7.42 (7.32-7.43) 09/21/18 18: VBG pCO2 49 mmHg (40-60) 09/21/18 18: VBG HCO3 28.8 mmol/L 09/21/18 18: VBG Total CO2 33.3 mmol/L (22-28) H 09/21/18 18:01 VBG O2 Sat (Calc) 63.7 % (40-65) 09/21/18 18:01 VBG Base Excess 6.1 mmol/L (0.0-2.0) H 09/21/18 18: VBG Potassium 4.1 mmol/L (3.6-5.2) 09/21/18 18: Sodium 141.0 mmol/L (132-148) 09/21/18 18: Chloride 100.0 mmol/L (98-107) 09/21/18 18: Glucose 477 mg/dL (75-110) H* 09/21/18 18: Lactate 3.8 mmol/L (0.7-2.1) H 09/21/18 18: FiO2 21.0 % 09/21/18 18: Blood Gas Comments Lac=3.8 09/21/18 18:01 Crit Value Called To issac Quezada 09/21/18 18:01 Crit Value Called By 22 09/21/18 18:01 Crit Value Read Back Y 09/21/18 18:01 Blood Gas Notified Time 180909/21/18 18:01 Sodium 133 mmol/l (132-148) 09/23/18 11:24 Potassium 3.5 MMOL/L (3.6-5.0) L 09/23/18 11:24 Chloride 99 mmol/L (98-107) 09/23/18 11:24 Carbon Dioxide 29 mmol/L (22-30) 09/23/18 11:24 Anion Gap 9 (10-20) L 09/23/18 11:24 BUN 4 mg/dl (9-20) L 09/23/18 11:24 Creatinine 0.5 mg/dl (0.8-1.5) L 09/23/18 11:24 Est GFR ( Amer) > 60 09/23/18 11:24 Est GFR (Non-Af Amer) > 60 09/23/18 11:24 POC Glucose (mg/dL) 226 mg/dL (65-110) H 09/23/18 16:11 Random Glucose 300 mg/dL (75-110) H 09/23/18 11:24 Hemoglobin A1c 9.7 % (4.2-6.5) H 09/22/18 04:20 Serum Osmolality 375 mosm/kg (272-300) H 09/21/18 17:59 Lactic Acid 0.6 MMOL/L (0.7-2.1) L 09/22/18 04:20 Calcium 8.5 mg/dL (8.4-10.2) 09/23/18 11:24 Phosphorus 4.1 mg/dl (2.5-4.5) 09/21/18 17:59 Magnesium 2.0 MG/DL (1.6-2.3) 09/21/18 17:59 Iron < 10 ug/dL (49-181) L 09/22/18 04:20 TIBC 271 ug/dL (250-450) 09/22/18 04:20 % Saturation 5 % (20-55) L 09/22/18 04:20 Total Bilirubin 0.3 mg/dl (0.2-1.3) 09/22/18 04:20 AST 59 U/L (17-59) D 09/22/18 04:20 ALT 100 U/L (21-72) H 09/22/18 04:20 Alkaline Phosphatase 60 U/L (38-126) 09/22/18 04:20 Troponin I < 0.0120 ng/mL (0.00-0.120) 09/21/18 17:59 Total Protein 6.0 G/DL (6.3-8.2) L 09/22/18 04:20 Albumin 3.3 g/dL (3.5-5.0) L 09/22/18 04:20 Globulin 2.7 gm/dL (2.2-3.9) 09/22/18 04:20 Albumin/Globulin Ratio 1.2 (1.0-2.1) 09/22/18 04:20 Vitamin B12 707 pg/mL (239-931) 09/22/18 04:20 Folate > 20.0 ng/mL 09/22/18 04:20 Venous Blood Potassium 4.1 mmol/L (3.6-5.2) 09/21/18 18:01 Urine Color Straw (YELLOW) 09/21/18 20:08 Urine Clarity Clear (Clear) 09/21/18 20:08 Urine pH 6.0 (5.0-8.0) 09/21/18 20:08 Ur Specific [place] 1.023 (1.003-1.030) 09/21/18 20:08 Urine Protein Negative mg/dL (NEGATIVE) 09/21/18 20:08 Urine Glucose (UA) >=500 mg/dL (Normal) 09/21/18 20:08 Urine Ketones 20 mg/dL (NEGATIVE) 09/21/18 20:08 Urine Blood Negative (NEGATIVE) 09/21/18 20:08 Urine Nitrate Negative (NEGATIVE) 09/21/18 20:08 Urine Bilirubin Negative (NEGATIVE) 09/21/18 20:08 Urine Urobilinogen 0.2-1.0 mg/dL (0.2-1.0) 09/21/18 20:08 Ur Leukocyte Esterase Neg Teri/uL (Negative) 09/21/18 20:08 Urine RBC (Auto) < 1 /hpf (0-3) 09/21/18 20:08 Urine Microscopic WBC < 1 /hpf (0-5) 09/21/18 20:08 Salicylates < 1.0 mg/dl 09/21/18 19:24 Urine Opiates Screen Negative (NEGATIVE) 09/21/18 20:08 Urine Methadone Screen Negative (NEGATIVE) 09/21/18 20:08 Acetaminophen < 10.0 ug/ml (10.0-30.0) L 09/21/18 19:24 Ur Barbiturates Screen Negative (NEGATIVE) 09/21/18 20:08 Ur Phencyclidine Scrn Negative (NEGATIVE) 09/21/18 20:08 Ur Amphetamines Screen Negative (NEGATIVE) 09/21/18 20:08 U Benzodiazepines Scrn Negative (NEGATIVE) 09/21/18 20:08 U Oth Cocaine Metabols Negative (NEGATIVE) 09/21/18 20:08 U Cannabinoids Screen Negative (NEGATIVE) 09/21/18 20:08 Alcohol, Quantitative 17 mg/dl (0-10) H 09/21/18 17:59 Blood Type A POSITIVE 09/21/18 17:59 Antibody Screen Negative 09/21/18 17:59 BBK History Checked No verified bt 09/21/18 17:59 - Hospital Course Hospital Course: Pt is a 43 yo male with hx diabetes mellitus type II , Insulin dependent and Hx of alcohol abuse, admitted for acute intoxication, suspected isopropyl alcohol ingestion. Pt was brought to ED on 09/21 pt was drinking with a friend and patient passed out. Friend stated he has a history of alcoholism, no seizures reported. In the ED, Initial alcohol level in ED 17; rubbing alcohol was found in pt's belonging, and poison control was called, isopropyl alcohol level ordered. Pt had hyperglycemia 543, elevated lactic acid, elevated LFT's ALT 79/AST 113, Fe deficiency. Head CT and cervical spine CT showed no acute abnormalities. Pt was monitored closely in Telemetry. He was started on IVF hydration. Glucose covere with sliding scale Insulin. Today pt is hemodynamically stable, awake alert and oriented to time date and place, tolerating oral intake, no tremors or DT's,. Physical therapy was consulted and found pt with stable gai. Pt is ambulating in his room and stable for discharge home. Discharge Exam - Head Exam Head Exam: ATRAUMATIC, NORMAL INSPECTION, NORMOCEPHALIC - Eye Exam Eye Exam: EOMI, Normal appearance, PERRL Pupil Exam: NORMAL ACCOMODATION - ENT Exam ENT Exam: Mucous Membranes Moist, Normal External Ear Exam - Neck Exam Neck exam: Full Rom - Respiratory Exam Respiratory Exam: NORMAL BREATHING PATTERN. absent: Respiratory Distress - Cardiovascular Exam Cardiovascular Exam: REGULAR RHYTHM, +S1, +S2 - GI/Abdominal Exam GI & Abdominal Exam: Normal Bowel Sounds, Soft. absent: Tenderness - Extremities Exam Extremities exam: full ROM, normal capillary refill, pedal pulses present - Back Exam Back exam: FULL ROM. absent: CVA tenderness (L), CVA tenderness (R) - Neurological Exam Neurological exam: Alert, CN II-XII Intact, Normal Gait, Oriented x3, Reflexes Normal - Psychiatric Exam Psychiatric exam: Normal Affect, Normal Mood - Skin Skin Exam: Dry, Normal Color, Warm Discharge Plan - Discharge Medications Prescriptions: Ferrous Sulfate [Feosol] 325 mg PO DAILY #30 tab Folic Acid 1 mg PO DAILY #30 tab Insulin Detemir [Levemir] 20 unit SC HS #1 vial Multimineral/Multivitamin [Therapeutic-M Tab] 1 tab PO DAILY #30 tab - Follow Up Plan Condition: GOOD Disposition: HOME/ ROUTINE Instructions: Alcohol Abuse and Alcoholism (DC), Alcohol Intoxication (DC), Alcohol Use Disorder (DC) Additional Instructions: -Follow up with PMD in 1 week- Dr. Christie Robbins -Gave pt list of alcohol treatment centers -Discussed with pt the necessity to seek help for alcohol abuse, pt states he agrees with plan to seek care home treatment - ERx sent to pt's pharmacy
[2018-09-23] MEDS ORDERED: Influenza Vaccine 60 MCG/0.5 ML SYR (3 yr & up) IM ONE (17:57)
[2018-09-23] MEDS ORDERED: Pneumococcal 23-Valent Vaccine IM ONE (17:57)
== END 2018-09-23 18:40 | disposition home or self-care (01) ==
LOC: H.ER 17:38 → H.ERHOLD 20:52 → H.TEL 22:37
PROVIDERS: ADMIT Internal Medicine; ATTEND Internal Medicine
DX: F10.229 Alcohol dependence with intoxication, unspecified (principal); Z79.4 Long term (current) use of insulin; R74.8 Abnormal levels of other serum enzymes; D50.9 Iron deficiency anemia, unspecified; E11.65 Type 2 diabetes mellitus with hyperglycemia; R07.9 Chest pain, unspecified
CPT/HCPCS: 36415; 70450; 71045; 72125; 80048; 80053; 80320; 80324; 80329; 80345; 80346; 80349; 80353; 80358; 80361; 81003; 82607; 82746; 82803; 82948; 83036; 83540; 83550; 83605; 83735; 83930; 83992; 84100; 84484; 85025; 85027; 85610; 85730; 86850; 86900; 87040; 87086; 93005; 96360; 96372; 96374; 97161; 99285; G0378; G8978; G8979; J1650; J2060; J3411; J7030